=== PATIENT | female | born 1985 | race African-American/Black ===

== ENCOUNTER 2017-08-13 09:00 | Emergency (ER) | payer OTHER ==
[2017-08-13 09:05] VITALS: BP 120/77
[2017-08-13] MEDS: IBUPROFEN 800 MG TABLET. PO ONE (09:37)
--- NOTE | 2017-08-13 09:53 | PHYS DOC ---
Past History Past Medical History: Anemia, Other Past Surgical History: Appendectomy, Tubal ligation Smoking: Cigarettes Alcohol Use: Occasionally Drug Use: None Adult General Chief Complaint Chief Complaint: SORE THROAT HPI HPI 32-year-old female patient complaining of sore throat since last night as a constant pain that getting worse with swallowing. Patient complaining of nasal congestion, myalgia and mild cough without fever and chills. Patient denies sick contact. Review of Systems Review of Systems Constitutional: Denies fever or chills [] Eyes: Denies change in visual acuity, redness, or eye pain [] HENT: Reports sore throat, nasal congestion Respiratory: Reports cough, denies shortness of breath [] Cardiovascular: No additional information not addressed in HPI [] GI: Denies abdominal pain, nausea, vomiting, bloody stools or diarrhea [] : Denies dysuria or hematuria [] Musculoskeletal: Denies back pain or joint pain [] Integument: Denies rash or skin lesions [] Neurologic: Denies headache, focal weakness or sensory changes [] Endocrine: Denies polyuria or polydipsia [] All other systems were reviewed and found to be within normal limits, except as documented in this note. Current Medications Current Medications Current Medications Medications (Trade) Dose Ordered Sig/Solo Start Time Stop Time Status Last Admin Dose Admin Ibuprofen (Motrin) 800 mg 1X ONCE 08/13/17 09:45 08/13/17 09:46 08/13/17 09:37 800 MG Allergies Allergies Allergies Coded Allergies Type Severity Reaction Last Updated Verified penicillin Allergy Severe Throat swelling 03/16/15 Yes Physical Exam Physical Exam Constitutional: Well developed, well nourished,mild distress, non-toxic appearance. [] HENT: Normocephalic, atraumatic, bilateral external ears normal, oropharynx moist, pharyngeal erythema without edema, no oral exudates, nose normal. [] Eyes: PERRLA, EOMI, conjunctiva normal, no discharge. [] Neck: Normal range of motion, no tenderness, supple, no stridor. [] Cardiovascular:Heart rate regular rhythm, no murmur [] Lungs & Thorax: Bilateral breath sounds clear to auscultation [] Abdomen: Bowel sounds normal, soft, no tenderness, no masses, no pulsatile masses. [] Skin: Warm, dry, no erythema, no rash. [] Back: No tenderness, no CVA tenderness. [] Extremities: No tenderness, no cyanosis, no clubbing, ROM intact, no edema. [] Neurologic: Alert and oriented X 3, normal motor function, normal sensory function, no focal deficits noted. [] Psychologic: Affect normal, judgement normal, mood normal. [] Current Patient Data Vital Signs Vital Signs Date Time Temp Pulse Resp B/P (MAP) Pulse Ox O2 Delivery O2 Flow Rate FiO2 08/13/17 09:05 98.1 104 18 100 Room Air EKG EKG [] Radiology/Procedures Radiology/Procedures [] Course & Med Decision Making Course & Med Decision Making Pertinent Labs reviewed. (See chart for details) Evaluation of patient in ER showed 32-year-old female patient with complaining of nasal congestion and sore throat and myalgias since last night. Patient had positive influenza B and negative strep test. Patient treated with ibuprofen and hydrocodone in ER and plan discharge home with prescription of Tamiflu and Phenergan codeine. I've spoken with the patient and/or caregivers. I've explained the patient's condition, diagnosis and treatment plan based on information available to me at this time. I've answered the patient's and/or caregivers questions and addressed any concerns. The patient and/or caregivers have a good understanding the patient's diagnosis, condition and treatment plan as can be expected at this point. Vital signs have been stabilized. The patient's condition is stable for discharge from the emergency department. The patient will pursue further outpatient evaluation with her primary care provider or other designated consulting physician as outlined in the discharge instructions. Patient and/or caregivers are agreeable to this plan of care and follow-up instructions have been explained in detail. The patient and/or caregivers have received these instructions in written format and expressed understanding of these discharge instructions. The patient and her caregivers are aware that if any significant change in condition or worsening of symptoms should prompt him to immediately return to this of the closest emergency department. If an emergent department is not readily available I would encourage him to call 911. Ana Disclaimer Dragon Disclaimer This electronic medical record was generated, in whole or in part, using a voice recognition dictation system. Departure Departure: Impression: Primary Impression: Influenza B Disposition: HOME, SELF-CARE (At 1014) Condition: IMPROVED Referrals: ALENA,MCGARRETT DO (PCP) Patient Instructions: Influenza A (H1N1) Additional Instructions: Drink plenty of liquids Follow-up with your primary care physician in 3-5 days Return to ER if not getting better Take alternate Tylenol and ibuprofen for pain and fever Scripts Oseltamivir Phosphate (TAMIFLU) 75 Mg Capsule 1 CAP PO BID, #10 CAP Prov: KAREN ACUNA MD 08/13/17 Promethazine Hcl/Codeine (PROMETHAZINE-CODEINE SYRUP) 118 Ml Syrup 5 ML PO Q4-6HRS, #120 ML Prov: KAREN ACUNA MD 08/13/17 KAREN ACUNA MD Aug 13, 2017 09:52
[2017-08-13 10:05] LABS: INFLUENZA A PATIENT NEGATIVE (NEGATIVE); INFLUENZA B PATIENT POSITIVE (NEGATIVE)
[2017-08-13] MEDS ORDERED: OSEL75CA PO (10:16)
[2017-08-13] MEDS ORDERED: PROM118S2 PO (10:16)
[2017-08-13] MEDS: HYDROcodone/APAP 5/325MG 1 TAB TABLET PO ONE (10:20)
[2017-08-13] MEDS ORDERED: HYDROcodone/APAP 5/325MG 1 TAB TABLET PO ONE (10:30)
== END 2017-08-13 10:20 | disposition home or self-care (01) ==
LOC: ER 09:00
DX: J10.1 Influenza due to other identified influenza virus with other respiratory manifestations (principal); F17.210 Nicotine dependence, cigarettes, uncomplicated; Z86.2 Personal history of diseases of the blood and blood-forming organs and certain disorders involving the immune mechanism; Z88.0 Allergy status to penicillin
CPT/HCPCS: 87070; 87804; 87880; 99284

== ENCOUNTER 2017-08-24 11:53 | Emergency (ER) | payer OTHER ==
[~2017-08-24 11:53] MED LIST: OSEL75CA PO; PROM118S2 PO
[2017-08-24 12:00] VITALS: BP 121/51
[2017-08-24] MEDS ORDERED: HYDR-971 PO (12:15)
[2017-08-24] MEDS ORDERED: CLIN300C8 PO (12:15)
--- NOTE | 2017-08-24 12:18 | PHYS DOC ---
General Chief Complaint: DENTAL PROBLEM Stated Complaint: DENTAL PAIN Time Seen by MD: 12:06 Source: patient Exam Limitations: no limitations Problems: History of Present Illness Initial Comments 32-year-old female comes to the ED complaining of dental pain. Patient states that she has a broken tooth (#14) and that she has dental insurance just has not followed up with a dentist. Past several days it's been hurting worse and worse, today noted some swelling at the gum no discharge. No fever chills sweats or body aches no headache or focal neurologic deficit. Patient also denies any bony point tenderness. Pain described as sharp and throbbing severe at its worst and is worse with temperature change and eating relieved somewhat by rest. Taking [id number] Tylenol which have been helping but not touching the pain today. ED vitals are stable on ED arrival, good by mouth intake and urine output. Patient also states she has dermatitis for which she takes hydroxyzine she has run out and is requesting a short course until she can get in with her doctor. Timing/Duration: abrupt, last week Severity: severe Location: dental Prearrival Treatment: over the counter meds Modifying Factors: improves with other Associated Symptoms: tooth pain, other Allergies: Coded Allergies: penicillin (Verified Allergy, Severe, Throat swelling, 03/16/15) Past Medical History Medical History: other (anemia, dermatitis) Surgical History: noncontributory Social History Smoker: non-smoker Alcohol: none Drugs: none Constitutional: denies chills, denies fever, denies malaise Ears: denies dizziness, denies pain, denies tinnitus Nose: denies clots, denies congestion, denies epistaxis Mouth: see HPI, denies bloody discharge, denies clear discharge, denies purulent discharge Throat: denies swelling, denies discharge, denies neck stiffness, denies painful swallowing, denies difficulty with fluids Respiratory: denies cough, denies shortness of breath Cardiovascular: denies palpitations, denies syncope Gastrointestinal: denies abdominal pain, denies nausea, denies vomiting Neurological: denies headache, denies numbness, denies paresthesia Physical Exam General Appearance: WD/WN, no apparent distress Eyes: bilateral eye normal inspection, bilateral eye PERRL, bilateral eye EOMI Nose: normal inspection Mouth/Throat: maxillary swelling, other (#14 severe decay, gingival swelling no discharge or bony TTP) Neck: non-tender, supple, trachea midline Cardiovascular/Respiratory: normal peripheral pulses, normal breath sounds 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 I stressed the importance of follow-up with dentist patient is aware that we will not treat this condition repeatedly without her following up appropriately. Departure Time of Disposition: 12:16 Disposition: 01 HOME, SELF-CARE Diagnosis: dental abscess (#14), dental caries, dermatitis NO Condition: GOOD Patient Instructions: Dental Abscess Additional Instructions: Please review the patient education materials given by ED staff. Aggressive hydration to prevent dehydration. [id number] ibuprofen 600-800 mg every 6-8 hours as needed for baseline discomfort. Prescription: Clindamycin, hydroxyzine As discussed, you must follow-up with a dentist for resolution of this condition. Call Saturday to schedule next available appointment. If you do not have a dentist ED staff can provide a list of local dental providers. Return to ED with new or changing symptoms. KIMBERLEY BELLA DO Aug 24, 2017 12:18
[2017-08-24] MEDS ORDERED: HYDR25TA PO (12:19)
[2017-08-24] MEDS ORDERED: HYDROcodone/APAP 7.5/325MG 1 TAB TABLET PO ONE (12:30)
[2017-08-24] MEDS ORDERED: ONDANSETRON ODT 4 MG TAB.RAPDIS PO ONE (12:30)
[2017-08-24] MEDS ORDERED: CLINDAMYCIN HCL 150 MG CAPSULE PO ONE (12:30)
== END 2017-08-24 12:25 | disposition home or self-care (01) ==
LOC: ER 11:53
DX: K04.7 Periapical abscess without sinus (principal); K02.9 Dental caries, unspecified; L30.9 Dermatitis, unspecified; Z86.2 Personal history of diseases of the blood and blood-forming organs and certain disorders involving the immune mechanism; Z88.0 Allergy status to penicillin
CPT/HCPCS: 99284; Q0162

== ENCOUNTER 2017-09-05 22:04 | Emergency (ER) | payer OTHER ==
[~2017-09-05] VITALS: Ht 165.1 cm; Wt 70.0 kg
[2017-09-05 22:04] VITALS: BP 117/82
[~2017-09-05 22:04] MED LIST changes: +CLIN300C8 PO; +HYDR-971 PO; +HYDR25TA PO
[2017-09-05] MEDS ORDERED: HYDROcodone/APAP 5/325MG 1 TAB TABLET PO ONE (22:30)
[2017-09-05] MEDS ORDERED: ONDANSETRON ODT 4 MG TAB.RAPDIS PO ONE (22:30)
[2017-09-05] MEDS ORDERED: CEPHALEXIN 250 MG CAPSULE PO ONE (22:30)
[2017-09-05] MEDS ORDERED: IBUPROFEN 600 MG TABLET. PO ONE (22:30)
[2017-09-05] MEDS ORDERED: IBUP600T16 PO (22:46)
[2017-09-05] MEDS ORDERED: CEPH-264 PO (22:46)
[2017-09-05] MEDS ORDERED: HYDR-971 PO (22:46)
--- NOTE | 2017-09-05 22:46 | PHYS DOC ---
Past History Past Medical History: Anemia Past Surgical History: Appendectomy, Tubal ligation Smoking: Cigarettes Alcohol Use: Occasionally Drug Use: None Adult General Chief Complaint Chief Complaint: DENTAL PROBLEM HPI HPI Patient is a 32-year-old female who presents here today with dental pain in her right upper premolars. Patient reports she has a history of dental problems in the past and reports increased pain last 24 hours. Patient has any fevers shakes chills nausea vomiting diarrhea or any other symptomology. Review of systems: Constitutional: Denies fever or chills Eyes: Denies change in visual acuity, redness, or eye pain HENT: Denies nasal congestion or sore throat All other review systems are negative except as documented in the history of present illness portion. Physical exam: Constitutional: Well developed, well nourished, no acute distress, non-toxic appearance. HENT: Normocephalic, atraumatic, bilateral external ears normal, nose normal. Eyes: EOMI, conjunctiva normal, no discharge. Neck: Normal range of motion, no tenderness, supple, no stridor. Cardiovascular:Heart rate regular rhythm Lungs & Thorax: Bilateral breath sounds clear to auscultation no respiratory distress Abdomen: Bowel sounds normal, soft, no tenderness, no masses, no pulsatile masses. Skin: Warm, dry, no erythema, no rash. Back: No tenderness, no CVA tenderness. Extremities: No tenderness, no cyanosis, no clubbing, ROM intact, no edema. Neurologic: Alert and oriented X 3, normal motor function, normal sensory function, no focal deficits noted. Psychologic: Affect normal, judgement normal, mood normal. Patient's ER physical exam is significant for tenderness to palpation to her right upper molar with a cavitary lesion. Assessment and plan: Toothache Patient be started on Motrin, [place], Keflex. Patient will be discharged home in stable condition with instructions follow-up with a dentist as soon as possible. Patient is not exhibiting signs or symptoms of significant dental abscess at this time. Current Medications Current Medications Current Medications Medications (Trade) Dose Ordered Sig/Solo Start Time Stop Time Status Last Admin Dose Admin Acetaminophen/ Hydrocodone Bitart (Lortab 5/325) 1 tab 1X ONCE 09/05/17 22:30 09/05/17 22:31 UNV Cephalexin HCl (Keflex) 500 mg 1X ONCE 09/05/17 22:30 09/05/17 22:31 UNV Ibuprofen (Motrin) 600 mg 1X ONCE 09/05/17 22:30 09/05/17 22:31 UNV Ondansetron HCl (Zofran Odt) 4 mg 1X ONCE 09/05/17 22:30 3 22:31 UNV Allergies Allergies Allergies Coded Allergies Type Severity Reaction Last Updated Verified penicillin Allergy Severe Throat swelling 03/16/15 Yes EKG EKG [] Radiology/Procedures Radiology/Procedures [] Course & Med Decision Making Course & Med Decision Making Pertinent Labs and Imaging studies reviewed. (See chart for details) [] Dragon Disclaimer Dragon Disclaimer This electronic medical record was generated, in whole or in part, using a voice recognition dictation system. Departure Departure: Impression: Primary Impression: Toothache Disposition: HOME, SELF-CARE Condition: IMPROVED Referrals: MATT CARVAJAL DO (PCP) Patient Instructions: Toothache-Brief Scripts Hydrocodone Bit/Acetaminophen (NORCO 5-325 TABLET) 1 Each Tablet 1 TAB PO PRN Q6HRS Y for PAIN, #12 TAB 0 Refills Prov: JAYLENE SORENSON MD 09/05/17 Cephalexin (KEFLEX) 500 Mg Capsule 1 CAP PO TID, #30 CAP Prov: JAYLENE SORENSON MD 09/05/17 Ibuprofen (IBUPROFEN) 600 Mg Tablet 600 MG PO QID Y for PAIN, #20 Prov: JAYLENE SORENSON MD 09/05/17 JAYLENE SORENSON MD Sep 05, 2017 22:46
== END 2017-09-05 23:00 | disposition home or self-care (01) ==
LOC: ER 22:04
DX: K08.89 Other specified disorders of teeth and supporting structures (principal); F17.210 Nicotine dependence, cigarettes, uncomplicated; Z86.2 Personal history of diseases of the blood and blood-forming organs and certain disorders involving the immune mechanism; Z88.0 Allergy status to penicillin
CPT/HCPCS: 99284; Q0162